=== PATIENT | female | born 1990 | race Caucasian/White ===

== ENCOUNTER 2016-10-28 21:24 | Emergency (ER) | payer BC, OTHER ==
[~2016-10-28] VITALS: Ht 170.2 cm; Wt 78.1 kg
[~2016-10-28 21:24] MED LIST: AMPH30CA3 PO; DULA1INJ; INSUINJ4 SQ; METF500T5 PO; NVLGIPEN INJ; RANI150T3 PO
[2016-10-28 21:28] VITALS: Ht 170.2 cm; Wt 78.1 kg
[2016-10-28] MEDS ORDERED: FERR1TAB13 PO (23:10)
[2016-10-28 23:19] LABS: BASO % 0.4 %; BASO ABS # 0.02 K/uL (0-0.2); COMPLETE YES; EOS % 2.2 %; HEMATOCRIT 37.4 % (37-47); LYMPH % 32.9 %; LYMPH ABS # 1.63 K/uL (1.2-3.4); MEAN CELL VOLUME 83.3 fL (80-100); MEAN CORPUSCULAR HEMOGLOBIN 28.1 pg (25-34); MEAN CORPUSCULAR HGB CONC 33.7 g/dl (32-36); MEAN PLATELET VOLUME 9.4 fL (7.4-10.4); MONO % 6.1 %; NEUT % 58.4 %; PLATELET COUNT 277 K/uL (130-400); RED BLOOD COUNT 4.49 M/uL (4.2-5.4); WHITE BLOOD COUNT 4.95 K/uL (4.8-10.8)
[2016-10-28 23:39] LABS: ALT/SGPT 21 U/L (12-78); AST/SGOT 11 U/L (15-37); BLOOD UREA NITROGEN 10 mg/dl (7-18); BUN/CREATININE RATIO 21.7 (10-20); CALCIUM 9.6 mg/dl (8.5-10.1); CARBON DIOXIDE 25 mmol/L (21-32); CHLORIDE 104 mmol/L (98-107); CREATININE 0.48 mg/dl (0.60-1.20); GLUCOSE 148 mg/dl (70-99); MAGNESIUM 1.8 mg/dl (1.8-2.4); SODIUM 139 mmol/L (136-145)
[2016-10-28 23:50] LABS: ALKALINE PHOSPHATASE 58 U/L (45-117)
[2016-10-29 00:18] LABS: PREG INTERNAL NEGATIVE QC NEG CLEAR BACKGROUND; PREG INTERNAL POSITIVE QC POS CONTROL LINE
[2016-10-29 00:28] VITALS: BP 122/85; PULSE 67; TEMP 36.9; O2SAT 98
--- NOTE | 2016-10-29 00:38 | EMERGENCY ROOM VISIT NOTE ---
History First contact with patient: 22:23 Chief Complaint: OTHER COMPLAINT Stated Complaint: CYANOSIS, TINGLING, DIZZINESS History of Present Illness The patient is a 25 year old female who presents to the Emergency Room with complaints of numbness tingling and burning to her toes and occasionally to her hands for the past few months that has been intermittent. Patient states she is recently diagnosed with anemia and is concerned about this. Patient states the symptoms are getting much better now. She states her feet and hands feel warm. Patient denies chest pain, dyspnea, fever, chills, abdominal pain, fatigue, dizziness. She is tolerate by mouth fluids and food. Review of Systems See HPI for pertinent positives & negatives. A total of 10 systems reviewed and were otherwise negative. Past Medical/Surgical History Medical Problems: (1) Diabetes Family History No pertinent family history Social History Smoking Status: Never Smoker Alcohol Use: none Drug Use: none Marital Status: single Housing Status: lives with roommate Occupation Status: employed, [employer] Current/Historical Medications Scheduled Amphetamine-Dextroamphetamine 30MG (Adderall Xr 30MG), 30 MG PO DAILY Ferrous Sulfate (Kp Ferrous Sulfate), 1 TAB PO BID Insulin Aspart (Novolog Flexpen), 1 DOSE INJ PUMP Metformin Hcl Er (Glucophage Er), 1,000 MG PO BID Ranitidine Hcl (Zantac), 150 MG PO BID Allergies Coded Allergies: Doxycycline (Verified Allergy, Unknown, ., 10/28/16) Physical Exam Vital Signs Date Time Temp Pulse Resp B/P Pulse Ox O2 Delivery O2 Flow Rate FiO2 10/29/16 00:23 67 18 122/85 98 Room Air 10/28/16 22:22 78 18 122/82 97 Room Air 10/28/16 21:28 36.9 86 18 128/84 100 Room Air Physical Exam VITALS: Vitals are noted on the nurse's note and reviewed by myself. Vital signs stable. GENERAL: Pleasant female, in no acute distress, nondiaphoretic, well-developed well-nourished. SKIN: The skin was without rashes, erythema, edema, or bruising. There is no tenting of the skin. Capillary reflex less than 2 seconds. HEAD: Normocephalic atraumatic. EARS: External auditory canals clear, tympanic membranes pearly doll without erythema or effusion bilaterally. EYES: Pupils equal round and reactive to light and accommodation. Conjunctivae without injection, sclerae without icterus. Extraocular movements intact. NOSE: Patent, turbinates without inflammation or discharge. MOUTH: Mucous membranes moist. Pharynx without erythema or exudate. Uvula midline. Airway patent. Tongue does not deviate. NECK: Supple without nuchal rigidity. No lymphadenopathy. No thyromegaly. Cervical spine is nontender. No JVD. HEART: Regular rate and rhythm without murmurs gallops or rubs. LUNGS: Clear to auscultation bilaterally without wheezes, rales or rhonchi. No dullness to percussion. No retractions or accessory muscle use. ABDOMEN: Positive bowel sounds x 4. Normal tympanic percussion. Soft, nontender, without masses or organomegaly. Mckinnon sign negative. No guarding or rebound tenderness. MUSCULOSKELETAL: No muscle atrophy, erythema, or edema noted. Hands and feet with good circulation. NEURO: Patient was alert and oriented to person place and time. Normal sensation to light and sharp touch. No focal neurological deficits. Medical Decision & Procedures Laboratory Results 10/28/16 22:50 Red Blood Count 4.49, Mean Corpuscular Volume 83.3, Mean Corpuscular Hemoglobin 28.1, Mean Corpuscular Hemoglobin Concent 33.7, Mean Platelet Volume 9.4, Neutrophils (%) (Auto) 58.4, Lymphocytes (%) (Auto) 32.9, Monocytes (%) (Auto) 6.1, Eosinophils (%) (Auto) 2.2, Basophils (%) (Auto) 0.4, Neutrophils # (Auto) 2.89, Lymphocytes # (Auto) 1.63, Monocytes # (Auto) 0.30, Eosinophils # (Auto) 0.11, Basophils # (Auto) 0.02 10/28/16 22:50 Test 10/28/16 22:50 White Blood Count 4.95 K/uL (4.8-10.8) Red Blood Count 4.49 M/uL (4.2-5.4) Hemoglobin 12.6 g/dL (12.0-16.0) Hematocrit 37.4 % (37-47) Mean Corpuscular Volume 83.3 fL (80-100) Mean Corpuscular Hemoglobin 28.1 pg (25-34) Mean Corpuscular Hemoglobin Concent 33.7 g/dl (32-36) Platelet Count 277 K/uL (130-400) Mean Platelet Volume 9.4 fL (7.4-10.4) Neutrophils (%) (Auto) 58.4 % Lymphocytes (%) (Auto) 32.9 % Monocytes (%) (Auto) 6.1 % Eosinophils (%) (Auto) 2.2 % Basophils (%) (Auto) 0.4 % Neutrophils # (Auto) 2.89 K/uL (1.4-6.5) Lymphocytes # (Auto) 1.63 K/uL (1.2-3.4) Monocytes # (Auto) 0.30 K/uL (0.11-0.59) Eosinophils # (Auto) 0.11 K/uL (0-0.5) Basophils # (Auto) 0.02 K/uL (0-0.2) RDW Standard Deviation 46.9 fL (36.4-46.3) RDW Coefficient of Variation 15.3 % (11.5-14.5) Immature Granulocyte % (Auto) 0.0 % Immature Granulocyte # (Auto) 0.00 K/uL (0.00-0.02) Anion Gap 10.0 mmol/L (3-11) Est Creatinine Clear Calc Drug Dose 196.3 ml/min Estimated GFR () > 150.0 Estimated GFR (Non- 138.3 BUN/Creatinine Ratio 21.7 (10-20) Calcium Level 9.6 mg/dl (8.5-10.1) Magnesium Level 1.8 mg/dl (1.8-2.4) Total Bilirubin 0.3 mg/dl (0.2-1) Direct Bilirubin < 0.1 mg/dl (0-0.2) Aspartate Amino Transf (AST/SGOT) 11 U/L (15-37) Alanine Aminotransferase (ALT/SGPT) 21 U/L (12-78) Alkaline Phosphatase 58 U/L (45-117) Total Protein 8.0 gm/dl (6.4-8.2) Albumin 4.3 gm/dl (3.4-5.0) Thyroid Stimulating Hormone (TSH) 2.480 uIu/ml (0.300-4.500) Human Chorionic Gonadotropin, Qual NEG (NEG) ED Course Prior records/ancillary studies reviewed and summarized above. Nursing notes reviewed. Additional history obtained from friend The patient's history was concerning for discoloration to hands and feet. Differential diagnosis: Etiologies such as raynauds, autoimmune disorder, anemia, metabolic, infection, hypo/hyperglycemia, electrolyte abnormalities, cardiac sources, intracerebral event, toxicologic, neurologic, as well as others were entertained. Physical examination: As above. ER treatment provided: IV Lock On reassessment the patient felt better. Diagnostics interpretation by me: The labs revealed stable H&H. No worrisome electrolyte abnormality. Mild hyperglycemia without DKA. Negative Exam and history seem consistent with Raynaud's. Patient's symptoms seem to be present in the cold. They resolve when she is warm. She does have diabetes. No DKA. She is neurovascularly and neurologically intact. She is advised to keep her extremities warm and if her symptoms persist to follow-up with family care or here in the ER sooner for severe pain, numbness, tingling, worsening signs or symptoms or as needed. By the evaluation outlined above emergent etiologies such as infection, electrolyte abnormalities, cardiac sources, intracerebral event, toxologic, neurologic, abnormalities blood glucose, metabolic, as well as others were deemed relatively unlikely. The pt informed about the findings as listed above. All questions were answered and pleased with the treatment. Return instructions were outlined and the patient was discharged in stable condition. Referral: The patient was referred back to primary care physician for follow-up in 2 to 3 days for a recheck of the current condition. Medical Decision As above Impression Primary Impression: Raynauds phenomenon Departure Information Dispostion Home / Self-Care Condition GOOD Forms WORK / SCHOOL INSTRUCTIONS, HOME CARE DOCUMENTATION FORM, Days off school: 1 School Instructions, IMPORTANT VISIT INFORMATION Patient Instructions Raynaud Disease, My [employer] Additional Instructions Monitor your blood sugars. Keep your fingers and feet warm at all times. Rest. Stay well-hydrated. Follow-up health services in 2-3 days. Return to ER sooner for chest pain, difficulty breathing, severe pain, worsening signs or symptoms or as needed. Problem Qualifiers Primary Impression: Raynauds phenomenon Raynaud?s-associated gangrene presence: without gangrene Qualified Codes: I73.00 - Raynaud's syndrome without gangrene
== END 2016-10-29 00:29 | disposition home or self-care (01) ==
LOC: C.EDB 21:25 → C.EDC 10-29 00:29
DX: I73.00 Raynaud's syndrome without gangrene (principal); E11.9 Type 2 diabetes mellitus without complications; Z79.4 Long term (current) use of insulin; Z79.84 Long term (current) use of oral hypoglycemic drugs; Z79.899 Other long term (current) drug therapy; Z88.8 Allergy status to other drugs, medicaments and biological substances

== ENCOUNTER 2017-02-08 15:02 | Emergency (ER) | payer BC, OTHER ==
[~2017-02-08] VITALS: Ht 172.7 cm; Wt 82.6 kg
[~2017-02-08 15:02] MED LIST changes: -DULA1INJ; +FERR1TAB13 PO; -INSUINJ4 SQ; -RANI150T3 PO
[2017-02-08 15:11] VITALS: TEMP 36.8; Ht 172.7 cm; Wt 82.6 kg
[2017-02-08] MEDS ORDERED: ONDANSETRON INJ 2 MG/ML 2 ML VIAL IV STA (16:56)
[2017-02-08] MEDS ORDERED: SODIUM CHLORIDE 0.9% 1000ML 2,000 ML IV STA (16:56)
--- NOTE | 2017-02-08 17:08 | EMERGENCY ROOM VISIT NOTE ---
History Report prepared by Nava: Yoli Chapman Under the Supervision of: Dr. Ruben Prescott D.O. First contact with patient: 16:36 Chief Complaint: HYPERGLYCEMIA Stated Complaint: HIGH BLOOD SUGAR,NAUSEA,DEHYDRATION Nursing Triage Summary: Pt states current BSG is 209, has an insulin pump. Pt states bsg has been averaging 258, up to 300's for the past couple days. Pt reports nausea, tired, h/a and "feels dehydrated." History of Present Illness The patient is a 26 year old female who presents to the Emergency Room with complaints of hyperglycemia starting about a month ago. The patient was diagnosed with Type I diabetes about 5 years ago. She has a history of DKA and reports similar symptoms today. She complains of a headache, nausea, dehydration , and weakness. She has been using an insulin pump since July 2016 but has been having trouble with controlling her blood sugar for the past month. She changes spots every 3 days. She started having problems with insulin absorption about a month ago. She discussed the issues with her PCP and started using different inserters. Her blood sugar level has been running in the 200-300s. Pt denies change in vision, fevers, runny nose, new cough or productive sputum, chest pain, shortness of breath, vomiting, abdominal pain, diarrhea, pain with urination, and melena. Her last normal menstrual period was about 2 weeks ago. Her last bowel movement was this morning. Source of History: patient Onset: about a month ago Position: other (global) Symptom Intensity: blood sugar level 200-300s Quality: other (hyperglycemia) Associated Symptoms: + headache, + nausea, + weakness, No SOB, No abdominal pain, No chest pain, No cough, No diarrhea, No fevers, No vomiting Review of Systems See HPI for pertinent positives & negatives. A total of 10 systems reviewed and were otherwise negative. Past Medical & Surgical Medical Problems: (1) Diabetes Family History No pertinent family history Social History Smoking Status: Never Smoker Alcohol Use: none Drug Use: none Marital Status: single Housing Status: lives with roommate Occupation Status: employed, [employer] student Current/Historical Medications Scheduled Amphetamine-Dextroamphetamine 30MG (Adderall Xr 30MG), 30 MG PO DAILY Ferrous Sulfate (Kp Ferrous Sulfate), 1 TAB PO BID Insulin Aspart (Novolog Flexpen), 1 DOSE INJ PUMP Metformin Hcl Er (Glucophage Er), 1,000 MG PO BID Allergies Coded Allergies: Doxycycline (Verified Allergy, Unknown, ., 02/08/17) Physical Exam Vital Signs Date Time Temp Pulse Resp B/P Pulse Ox O2 Delivery O2 Flow Rate FiO2 02/08/17 18:48 90 18 119/72 98 02/08/17 16:41 71 18 140/95 100 Room Air 02/08/17 15:11 36.8 82 18 141/90 100 Room Air Physical Exam GENERAL: Sitting up in bed, no distress, non-toxic EYE EXAM: normal conjunctiva, PERRL and EOM's grossly intact OROPHARYNX: no exudate, no erythema, lips, buccal mucosa, and tongue normal and mucous membranes are moist NECK: supple, no nuchal rigidity, no adenopathy, non-tender LUNGS: Clear to auscultation. Normal chest wall mechanics HEART: no murmurs, S1 normal and S2 normal ABDOMEN: abdomen soft, non-tender, normo-active bowel sounds, no masses, no rebound or guarding. BACK: Back is symmetrical on inspection and there is no deformity, no midline tenderness, no CVA tenderness. SKIN: no rashes and no bruising UPPER EXTREMITIES: upper extremities are grossly normal. LOWER EXTREMITIES: No pitting edema. NEURO EXAM: Normal sensorium, cranial nerves II-XII intact, normal speech, no weakness of arms, no weakness of legs. No drift. Finger to nose intact. Gross sensation intact. Medical Decision & Procedures Laboratory Results 02/08/17 16:45 Red Blood Count 4.17, Mean Corpuscular Volume 86.8, Mean Corpuscular Hemoglobin 30.0, Mean Corpuscular Hemoglobin Concent 34.5, Mean Platelet Volume 9.7, Neutrophils (%) (Auto) 70.9, Lymphocytes (%) (Auto) 21.7, Monocytes (%) (Auto) 5.9, Eosinophils (%) (Auto) 0.9, Basophils (%) (Auto) 0.4, Neutrophils # (Auto) 4.00, Lymphocytes # (Auto) 1.22, Monocytes # (Auto) 0.33, Eosinophils # (Auto) 0.05, Basophils # (Auto) 0.02 02/08/17 16:45 Test 02/08/17 16:45 02/08/17 17:20 02/08/17 17:53 02/08/17 18:04 White Blood Count 5.63 K/uL (4.8-10.8) Red Blood Count 4.17 M/uL (4.2-5.4) Hemoglobin 12.5 g/dL (12.0-16.0) Hematocrit 36.2 % (37-47) Mean Corpuscular Volume 86.8 fL (80-100) Mean Corpuscular Hemoglobin 30.0 pg (25-34) Mean Corpuscular Hemoglobin Concent 34.5 g/dl (32-36) Platelet Count 234 K/uL (130-400) Mean Platelet Volume 9.7 fL (7.4-10.4) Neutrophils (%) (Auto) 70.9 % Lymphocytes (%) (Auto) 21.7 % Monocytes (%) (Auto) 5.9 % Eosinophils (%) (Auto) 0.9 % Basophils (%) (Auto) 0.4 % Neutrophils # (Auto) 4.00 K/uL (1.4-6.5) Lymphocytes # (Auto) 1.22 K/uL (1.2-3.4) Monocytes # (Auto) 0.33 K/uL (0.11-0.59) Eosinophils # (Auto) 0.05 K/uL (0-0.5) Basophils # (Auto) 0.02 K/uL (0-0.2) RDW Standard Deviation 39.5 fL (36.4-46.3) RDW Coefficient of Variation 12.4 % (11.5-14.5) Immature Granulocyte % (Auto) 0.2 % Immature Granulocyte # (Auto) 0.01 K/uL (0.00-0.02) Anion Gap 6.0 mmol/L (3-11) Est Creatinine Clear Calc Drug Dose 171.5 ml/min Estimated GFR () > 150.0 Estimated GFR (Non- 129.8 BUN/Creatinine Ratio 19.6 (10-20) Calcium Level 9.3 mg/dl (8.5-10.1) Total Bilirubin 0.4 mg/dl (0.2-1) Direct Bilirubin < 0.1 mg/dl (0-0.2) Aspartate Amino Transf (AST/SGOT) 7 U/L (15-37) Alanine Aminotransferase (ALT/SGPT) 22 U/L (12-78) Alkaline Phosphatase 69 U/L (45-117) Total Protein 8.0 gm/dl (6.4-8.2) Albumin 4.5 gm/dl (3.4-5.0) Lipase 121 U/L (73-393) Urine Color YELLOW Urine Appearance CLEAR (CLEAR) Urine pH 7.5 (4.5-7.5) Urine Specific [place] 1.006 (1.000-1.030) Urine Protein NEG (NEG) Urine Glucose (UA) NEG (NEG) Urine Ketones NEG (NEG) Urine Occult Blood NEG (NEG) Urine Nitrite NEG (NEG) Urine Bilirubin NEG (NEG) Urine Urobilinogen NEG (NEG) Urine Leukocyte Esterase NEG (NEG) Urine WBC (Auto) 0 /hpf (0-5) Urine RBC (Auto) 0-4 /hpf (0-4) Urine Hyaline Casts (Auto) 0 /lpf (0-5) Urine Epithelial Cells (Auto) 5-10 /lpf (0-5) Urine Bacteria (Auto) NEG (NEG) Urine Test NEG (NEG) Venous Blood pH 7.37 (7.36-7.41) Venous Blood Partial Pressure CO2 49 mmHg (38.0-50.0) Venous Blood Partial Pressure O2 21 mmHg Venous Blood HCO3 28 mmol/L Venous Blood Oxygen Saturation < 60.0 % Venous Blood Base Excess 1.8 mmol/L Bedside Glucose 112 mg/dl (70-90) Laboratory results per my review. Medications Administered Medications (Trade) Dose Ordered Sig/Fauzia Route Start Time Stop Time Status Last Admin Dose Admin Sodium Chloride (Nss 1000ml) 2,000 ml @ 999 mls/hr Q2H1M STAT IV 02/08/17 16:56 02/08/17 18:56 DC 02/08/17 16:56 999 MLS/HR Ondansetron HCl (Zofran Inj) 4 mg NOW STAT IV 02/08/17 16:56 02/08/17 16:57 DC 02/08/17 17:15 4 MG ED Course ED COURSE: Vital signs were reviewed and showed hypertensive. The patients medical record was reviewed The above diagnostic studies were performed and reviewed. ED treatments and interventions as stated above. 1636: The patient was evaluated in room C11B. A complete history and physical examination was performed. 1656: Zofran Inj 4 mg IV, Sodium Chloride 2000 ml @ 999 mls/hr IV 1830: Upon reevaluation, the patient is feeling better.I discussed my findings with the patient and she understands and agrees with the treatment plan. Based on the patients age, coexisting illnesses, exam and lab findings the decision to treat as an outpatient was made. The patient remained stable while under my care. The patient appeared well at the time of discharge. Medical Decision Differential Diagnosis includes but is not limited to dehydration, stroke, anemia, hypoglycemia, hyponatremia, hypernatremia, urinary tract infection, pneumonia, bronchitis, sepsis, gastroenteritis, additional abdominal pathology, metabolic abnormalities and infections. Blood pressure screening: Patient was found to have normal blood pressure on screening and does not require follow-up. Medication Reconciliation: I attest that I have personally reviewed the patient' s current medication list. Patient is a 26-year-old female who presents the ER who is a type I diabetic and uses an insulin pump. She notes that she has been having trouble with her pump for the past month. Blood sugars have been 200-300. She does complain of being nauseous and feeling weak. CBC along with BMP was unremarkable.. Blood sugar trend down from 221-112. LFTs and bilirubin were normal. UA has no ketones. was negative. PH was normal. 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 Discussed with Pt concerning signs and symptoms to watch out for. Pt was instructed to follow up with their PCP and discussed with the patient their option to return to the ED at anytime for persistent or worsening symptoms. The appropriate anticipatory guidance and out-patient management, including indications for return to the emergency department, were explained at length to the patient and understood. Impression Primary Impression: Hyperglycemia Scribe Attestation The scribe's documentation has been prepared under my direction and personally reviewed by me in its entirety. I confirm that the note above accurately reflects all work, treatment, procedures, and medical decision making performed by me. Departure Information Dispostion Home / Self-Care Referrals [facility] (PCP) Forms HOME CARE DOCUMENTATION FORM, IMPORTANT VISIT INFORMATION, WORK / SCHOOL INSTRUCTIONS Patient Instructions ED Hyperglycemia Diabetic, My [facility] Additional Instructions Please follow up with your primary care doctor with in the next 24 hours. Any worsening of your symptoms, please return to the ED immediately. This includes persistent nausea vomiting, weakness or numbness in arms or legs, fevers greater than 100.4, persistently elevated blood sugars or any other concerning signs or symptoms from your standpoint.
[2017-02-08 17:09] LABS: BASO % 0.4 %; BASO ABS # 0.02 K/uL (0-0.2); COMPLETE YES; EOS % 0.9 %; HEMATOCRIT 36.2 % (37-47); IG% 0.2 %; LYMPH % 21.7 %; LYMPH ABS # 1.22 K/uL (1.2-3.4); MEAN CELL VOLUME 86.8 fL (80-100); MEAN CORPUSCULAR HGB CONC 34.5 g/dl (32-36); MEAN PLATELET VOLUME 9.7 fL (7.4-10.4); MONO % 5.9 %; NEUT % 70.9 %; PLATELET COUNT 234 K/uL (130-400); RED BLOOD COUNT 4.17 M/uL (4.2-5.4); WHITE BLOOD COUNT 5.63 K/uL (4.8-10.8)
[2017-02-08 17:15] LABS: ALT/SGPT 22 U/L (12-78); AST/SGOT 7 U/L (15-37); BLOOD UREA NITROGEN 11 mg/dl (7-18); BUN/CREATININE RATIO 19.6 (10-20); CALCIUM 9.3 mg/dl (8.5-10.1); CARBON DIOXIDE 30 mmol/L (21-32); CHLORIDE 102 mmol/L (98-107); CREATININE 0.57 mg/dl (0.60-1.20); GLUCOSE 204 mg/dl (70-99); POTASSIUM 3.9 mmol/L (3.5-5.1); SODIUM 138 mmol/L (136-145)
[2017-02-08 17:17] LABS: ALKALINE PHOSPHATASE 69 U/L (45-117)
[2017-02-08 17:48] LABS: URINE APPEARANCE CLEAR (CLEAR); URINE BILIRUBIN NEG (NEG); URINE COLOR YELLOW; URINE NITRITE NEG (NEG); URINE PH 7.5 (4.5-7.5); URINE SPECIFIC GRAVITY 1.006 (1.000-1.030); UROBILINOGEN NEG (NEG); ZZUR CULT IF INDIC CLEAN CATCH NO
[2017-02-08 17:55] LABS: MANUAL MICROSCOPIC REQUIRED? NO; REVIEW REQ? NO
[2017-02-08 18:18] LABS: VEN BLD GAS O2 SATURATION < 60.0 %; VEN BLOOD GAS BASE EXCESS 1.8 mmol/L; VENOUS BLOOD GAS PCO2 49 mmHg (38.0-50.0); VENOUS BLOOD GAS PO2 21 mmHg
[2017-02-08 18:48] VITALS: BP 119/72; PULSE 90; O2SAT 98
== END 2017-02-08 18:49 | disposition home or self-care (01) ==
LOC: C.EDB 15:04 → C.EDC 18:49
DX: E10.65 Type 1 diabetes mellitus with hyperglycemia (principal); Z96.41 Presence of insulin pump (external) (internal); Z79.4 Long term (current) use of insulin; Z79.899 Other long term (current) drug therapy